=== PATIENT | male | born 1960 | race Two or more races ===

== ENCOUNTER 2025-04-11 14:00 | Outpatient (RCR) | payer MEDICAID, SELFPAY ==
--- NOTE | 2025-04-02 13:15 | PT.OIERPT ---
PT OP Initial Eval Patient Information Outpatient Physical Therapy Treatment Date: 04/02/25 Visit Reasons: hand pain Medical Diagnosis: Left Hand Pain; M24.54; M62.54 Treatment Dx #1: Left Hand Pain Treatment Dx #2: Left Hand Weakness Start of Care: 04/02/25 Date of Onset: Jun 2024 Smoking Status Smoking Status: Never smoker Initial Assessment Subjective: Pt is a 65 y/o male reports of left chronic hand pain and contracture after he fell in Jun 2024. 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 Pt has limitation with gripping, lifting, chores, self care, cooking, cleaning, and performing recreational activities. 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 Pt will attempt physical therapy if pain continues to persist Pt will be refer back to provider for further consultation. 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 1) Increase left digit flexion AROM WNL in 6 wks to be able to perform gripping activities 2) Increase left upkeep mechanic strength to 50 lbs in 6 wks to be able to perform recreational activities 3) Decrease hand pain to 2/10 in 6 wks to be able to perform lifting activities 4) Increase wrist MMTs grossly to 4-/5 in 6 wks to be able to perform self care activities 5) Indep with HEP Treatment Plan 1) Manual Therapy 2) Therapeutic Activities 3) Therapeutic Exercises 4) Modalities (ice, heat) Frequency and Duration: 2 x wk for 6 wks Certification Dates: 04/02/25 to 07/03/25 Procedure Charges OP PT Eval Mod Complex 30 minutes: Yes
--- NOTE | 2025-04-11 16:05 | PT.ODAYNRPT ---
PT Outpatient Daily Note OP Daily Note Outpatient Physical Therapy Treatment Date: 04/11/25 Visit Reasons: hand pain Subjective: Pt reports hand is stiff and weak. Objective: Please see flow sheet for ther ex list. Assessment: Pt instructed on self stretches for gripping, pt able to replicate with good technique. Plan: Continue with POC. Length of Time (minutes) of Treatment: 30 Minutes Procedure Charges Therapeutic Exercise 30 minutes: Yes
== END 2025-04-16 23:59 | disposition home or self-care (01) ==
LOC: CPTX 14:00
PROVIDERS: PCP Nurse Practitioner Family; Referring Provider Nurse Practitioner Family; Visit Provider Nurse Practitioner Family
DX: M79.642 Pain in left hand (principal); M24.542 Contracture, left hand; R53.1 Weakness; M19.042 Primary osteoarthritis, left hand
CPT/HCPCS: 97110; 97162

== ENCOUNTER 2025-05-09 13:00 | Outpatient (RCR) | payer MEDICAID, SELFPAY ==
--- NOTE | 2025-04-18 14:25 | PT.ODAYNRPT ---
PT Outpatient Daily Note OP Daily Note Outpatient Physical Therapy Treatment Date: 04/18/25 Visit Reasons: LEFT HAND PAIN Subjective: Pt reports hand is doing ok, has been working on bending the fingers at home. Objective: Please see flow sheet for ther ex list. Assessment: Performed PROM into digit flexion, pt tolerated with minimal pain. Plan: Continue with poC. Length of Time (minutes) of Treatment: 30 Minutes Procedure Charges Therapeutic Exercise 30 minutes: Yes
--- NOTE | 2025-04-23 14:47 | PT.ODAYNRPT ---
PT Outpatient Daily Note OP Daily Note Outpatient Physical Therapy Treatment Date: 04/23/25 Visit Reasons: LEFT HAND PAIN Subjective: Pt reports noticing that he ROM has improved to make a fist. Objective: Please see flow sheet for ther ex list. Assessment: Continued working on improving ROM of digits and ability to make a fist. Plan: Continue with poC. Length of Time (minutes) of Treatment: 30 Minutes Procedure Charges Therapeutic Exercise 30 minutes: Yes
--- NOTE | 2025-04-25 15:01 | PTNOTE_ITS ---
PT Outpatient Daily Note OP Daily Note Outpatient Physical Therapy Treatment Date: 04/25/25 Visit Reasons: LEFT HAND PAIN Subjective: Pt reports L hand is doing a little better, notices he can close into a fist a little more. Objective: Pleae see flow sheet for ther ex list. 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 Plan: Continue with pOC. Length of Time (minutes) of Treatment: 30 Minutes Procedure Charges Therapeutic Exercise 30 minutes: Yes
--- NOTE | 2025-05-04 12:00 | PT.ODAYNRPT ---
PT Outpatient Daily Note OP Daily Note Outpatient Physical Therapy Treatment Date: 05/04/25 Visit Reasons: LEFT HAND PAIN Subjective: Pt's hand is stiff and still unable to make a full fist. Objective: Please see flow chart for list of ther ex performed Assessment: patient continue to exhibit 80-90% finger flexion towards end range. Pt instructed to perform more finger flexion stretching at home to help with overall finger flexion AROM Plan: Continue with PT Length of Time (minutes) of Treatment: 30 Minutes Procedure Charges Therapeutic Exercise 30 minutes: Yes
--- NOTE | 2025-05-07 12:30 | PT.ODAYNRPT ---
PT Outpatient Daily Note OP Daily Note Outpatient Physical Therapy Treatment Date: 05/07/25 Visit Reasons: LEFT HAND PAIN Subjective: Pt's hand is better and notice his fingers are straight. Pt still has difficulty making a fist Objective: Please see flow chart for list of ther ex performed Assessment: tolerate exercises with minimal pain. Pt exhibit decrease finger flexion contracture on 3rd and 4th digit Plan: Continue with PT Length of Time (minutes) of Treatment: 30 Minutes Procedure Charges Therapeutic Exercise 30 minutes: Yes
--- NOTE | 2025-05-09 13:29 | PT.ODAYNRPT ---
PT Outpatient Daily Note OP Daily Note Outpatient Physical Therapy Treatment Date: 05/09/25 Visit Reasons: LEFT HAND PAIN Subjective: Pt reports hand is doing better. Objective: Please see flow sheet for ther ex list. ARLETH score L 50 lbs, R 69 lbs. 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 Plan: Continue with pOC. Length of Time (minutes) of Treatment: 30 Minutes Procedure Charges Therapeutic Exercise 30 minutes: Yes
== END 2025-05-17 23:59 | disposition home or self-care (01) ==
LOC: CPTX 13:00
PROVIDERS: PCP Nurse Practitioner Family; Referring Provider Nurse Practitioner Family; Visit Provider Nurse Practitioner Family
DX: M79.642 Pain in left hand (principal); R53.1 Weakness; M24.542 Contracture, left hand; M19.042 Primary osteoarthritis, left hand
CPT/HCPCS: 97110

== ENCOUNTER 2025-06-07 14:00 | Outpatient (RCR) | payer MEDICAID, SELFPAY ==
--- NOTE | 2025-05-23 13:57 | PTNOTE_ITS ---
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 Objective: Please see flow sheet for ther ex list. ARLETH score L: 50 lbs, R: 65 lbs. Assessment: Pt corporate legal assistant strength continues to improve indicated by above measurements. Plan: Continue with POC. Length of Time (minutes) of Treatment: 30 Minutes Procedure Charges Therapeutic Exercise 30 minutes: Yes
--- NOTE | 2025-05-29 14:34 | PT.ODAYNRPT ---
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 Objective: Please see flow sheet for ther ex list. Assessment: epic ambulatory analyst strength and ROM slowly improving. Plan: Continue with pOC. Length of Time (minutes) of Treatment: 30 Minutes Procedure Charges Therapeutic Exercise 30 minutes: Yes
--- NOTE | 2025-05-31 15:33 | PT.ODAYNRPT ---
PT Outpatient Daily Note OP Daily Note Outpatient Physical Therapy Treatment Date: 05/31/25 Visit Reasons: left hand pain Subjective: Pt reports L hand is doing a little better. Objective: Please see flow sheet for ther ex lsit. Assessment: Added LLPS into digit flexion, pt tolerated well. Plan: Continue with poC. Length of Time (minutes) of Treatment: 30 Minutes Procedure Charges Therapeutic Exercise 30 minutes: Yes
--- NOTE | 2025-06-07 14:30 | PT.ODS1RPT ---
PT OP Progress/Discharge Note Date of Service: 06/07/25 Progress Note/DC Note Progress Note/Discharge Note: DC Note Patient Information Visit Reasons: left hand pain Medical Diagnosis: M24.54; M62.54 Treatment Dx #1: Left Hand Pain Treatment Dx #2: Left Hand Weakness Service Continue Service or Discharge: Discharge Discharge Date: 06/07/25 Status Subjective: Pt's hand is better but still unable to completely make a fist. Pt has been able to perform most ADLs, chores, self care, cooking, cleaning, and gripping activities. 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 Pt will no longer benefit from physical therapy due to plateau towards physical therapy goals. Pt was instructed on HEP last session and educated to continue exercises to maintain overall mobility. Pt performed all exercises safely, thank you for your referrals. Plan: D/C home with HEP and follow up with MD SANDERSON Procedure Charges Therapeutic Exercise 30 minutes: Yes
== END 2025-06-17 23:59 | disposition home or self-care (01) ==
LOC: CPTX 14:00
PROVIDERS: PCP Nurse Practitioner Family; Referring Provider Nurse Practitioner Family; Visit Provider Nurse Practitioner Family
DX: M79.642 Pain in left hand (principal); M24.542 Contracture, left hand; R53.1 Weakness; G89.29 Other chronic pain; M19.042 Primary osteoarthritis, left hand
CPT/HCPCS: 97110